=== PATIENT | male | born 1950 | race Caucasian/White ===

== ENCOUNTER → 2017-03-13 15:45 | Outpatient (CLI) | payer MEDICARE | END | disposition home or self-care (01) | LOC: D.MRI 15:45 | DX: M54.16 Radiculopathy, lumbar region (principal) ==

== ENCOUNTER 2018-08-28 06:00 | Outpatient (CLI) | payer MEDICARE ==
[2018-08-27 12:45] LABS: BASOPHILS 0.7 % (0-2); EOSINOPHILS 6.3 % (0-7); HEMATOCRIT 41.9 % (42.0-54.0); HEMOGLOBIN 14.8 g/dL (13.5-17.5); IMMATURE GRANULOCYTES 0.2 % (0-5); LYMPHOCYTES 21.7 % (15-50); MCH 32.1 pg (26.0-34.0); MCHC 35.3 g/dL (31.0-37.0); MCV 90.9 fL (80.0-100.0); MEAN PLATELET VOLUME 8.7 fL (7.4-10.4); MONOCYTES 9.5 % (2-11); NEUTROPHILS 61.6 % (40-80); PLATELET COUNT 263 10x3/uL (130-400); RBC 4.61 10x6/uL (4.20-6.10); RDW 12.5 % (11.5-14.5); WBC 5.8 10x3/uL (4.8-10.8)
[2018-08-27 13:01] LABS: INR 1.1 (0.85-1.17); PROTIME 13.7 SECONDS (11.6-15.0)
[2018-08-27 13:02] LABS: APTT 50.4 SECONDS (22.8-39.4)
[~2018-08-28] VITALS: Ht 182.9 cm; Wt 102.5 kg
[~2018-08-28 06:00] MED LIST: CIALIS2.5 MG PO; LOPRESSOR25 MG PO; PROPAFENONE HC300 MG PO
[2018-08-28 07:19] VITALS: BP 138/86; Ht 182.9 cm; Wt 102.5 kg
--- NOTE | 2018-08-28 14:43 | NUR ---
0900-updated his surgery is delayed due to dr hathaway assisting with another procedure 1000-updated still working 1130-states tired of waiting and wants to go home. 1145-iv d/c. patient dressed. dc home ambulatory.
== END 2018-08-28 06:01 | disposition home or self-care (01) ==
LOC: D.OPS 06:00 → D.PAN 08:00 → EDSTATUS 08:00 → D.OPS 09:00
PROVIDERS: Anesthesiology; ATTEND Surgery
DX: K40.90 Unilateral inguinal hernia, without obstruction or gangrene, not specified as recurrent (principal); Z53.29 Procedure and treatment not carried out because of patient's decision for other reasons; Z01.812 Encounter for preprocedural laboratory examination

== ENCOUNTER 2019-01-03 02:00 | Outpatient (CLI) | payer MEDICARE ==
[2019-01-03] VITALS (7 sets, daily range): BP systolic 107–132; BP diastolic 56–90; Ht 182.9 cm; Wt 102.2 kg
[~2019-01-03] VITALS: Ht 182.9 cm; Wt 102.2 kg
[2019-01-03] MEDS ORDERED: PROPAFENONE HC300 MG PO (02:05)
[2019-01-03] MEDS ORDERED: OXYBUTYNIN CHLOR5 M1 PO (02:06)
[2019-01-03] MEDS ORDERED: ELIQUIS5 MG PO (02:07)
[2019-01-03] MEDS ORDERED: K-TAB10 MEQ PO (02:07)
[2019-01-03 02:24] LABS: BASOPHILS 0.4 % (0-2); EOSINOPHILS 5.8 % (0-7); HEMATOCRIT 43.7 % (42.0-54.0); HEMOGLOBIN 15.8 g/dL (13.5-17.5); IMMATURE GRANULOCYTES 0.2 % (0-5); LYMPHOCYTES 30.4 % (15-50); MCH 32.8 pg (26.0-34.0); MCHC 36.2 g/dL (31.0-37.0); MCV 90.9 fL (80.0-100.0); MONOCYTES 7.4 % (2-11); NEUTROPHILS 55.8 % (40-80); PLATELET COUNT 289 10x3/uL (130-400); RBC 4.81 10x6/uL (4.20-6.10); RDW 12.7 % (11.5-14.5); WBC 10.6 10x3/uL (4.8-10.8)
[2019-01-03 02:28] LABS: INR 1.33 (0.85-1.17)
[2019-01-03 02:29] LABS: APTT 55.9 SECONDS (22.8-39.4)
[2019-01-03 02:33] LABS: ALBUMIN 3.2 g/dL (3.4-5.0); ALKALINE PHOSPHATASE 65 U/L (46-116); ALT (SGPT) 43 U/L (10-68); BILIRUBIN - TOTAL 0.37 mg/dL (0.2-1.3); CALC OSMOLALITY 282 mosm/kg (275-300); CALCIUM 9.8 mg/dL (8.5-10.1); CARBON DIOXIDE 21.1 mmol/L (21.0-32.0); CHLORIDE - SERUM 104 mmol/L (98-107); CREATININE - SERUM 1.3 mg/dL (0.6-1.3); GLUCOSE 178 mg/dL (74-106); POTASSIUM - SERUM 4.3 mmol/L (3.5-5.1); SODIUM 138 mmol/L (136-145); UREA NITROGEN 20 mg/dL (7-18); eGFR NON AFRICAN AMERICAN 58 mL/min (90-120)
[2019-01-03 02:44] LABS: CKMB 0.4 U/L (0.0-3.6); CREATINE KINASE 45 UL (21-232); MAGNESIUM - SERUM 1.9 mg/dL (1.8-2.4); TROPONIN-I < 0.017 ng/mL (0.000-0.060)
--- NOTE | 2019-01-03 11:34 | NUR ---
IV AND TELEMETRY DCD. DC PLANS GIVEN. UNDERSTANDING VOICED.
--- NOTE | 2019-01-07 11:09 | DS ---
PATIENT:TOBY SAUCEDA :48 MEDICAL RECORD: [id number] DISCHARGE SUMMARY ADMISSION DATE: 01/03/19 DISCHARGE DATE: 01/03/19 DIAGNOSIS: Supraventricular tachycardia. BRIEF HISTORY: This is a gentleman with a past history of SVT ablation in the past for SVT by Dr. Davenport. He presents to the Emergency Room with recurrent SVT, requiring cardioversion. He had no further dysrhythmia. He is on propafenone as well as Lopressor. Lopressor was increased from 25 to 50 mg b.i.d., the propafenone will continue. He will follow up with his assistant engineer for further EP study and possible ablation. TRANSINT:[id number] Voice Confirmation ID: [id number] DOCUMENT ID: [id number] BRIGETTE ONEAL MD at 1109 CC: [id number] DICTATION DATE: 01/03/19 1000 SITECORE DEVELOPER: 01/03/19 1027 DEP CLI 01/03/19 [facility] [address] [place] [address]
== END 2019-01-03 11:35 | disposition home or self-care (01) ==
LOC: OBSVTIME → D.ER 02:00 → D.CATH 02:00 → D.M2 03:52 → D.ER 03:52 → OBSVTIME 03:52 → D.M2 03:52 → D.ER 04:50 → EDSTATUS 11:18 → D.CATH 11:35 → D.M2 11:35
PROVIDERS: Family Medicine; ATTEND Internal Medicine Interventional Cardiology
DX: I47.1 Supraventricular tachycardia (principal); I48.0 Paroxysmal atrial fibrillation; K21.9 Gastro-esophageal reflux disease without esophagitis; G89.29 Other chronic pain

== ENCOUNTER 2019-01-08 04:48 | Outpatient (CLI) | payer MEDICARE ==
[~2019-01-08] VITALS: Ht 182.9 cm; Wt 103.6 kg
[~2019-01-08 04:48] MED LIST changes: +ELIQUIS5 MG PO; +K-TAB10 MEQ PO; +OXYBUTYNIN CHLOR5 M1 PO
[2019-01-08 05:22] LABS: BASOPHILS 0.3 % (0-2); EOSINOPHILS 1.3 % (0-7); HEMATOCRIT 44.4 % (42.0-54.0); HEMOGLOBIN 15.8 g/dL (13.5-17.5); IMMATURE GRANULOCYTES 0.3 % (0-5); INR 1.25 (0.85-1.17); LYMPHOCYTES 13.1 % (15-50); MCH 32.1 pg (26.0-34.0); MCHC 35.6 g/dL (31.0-37.0); MCV 90.2 fL (80.0-100.0); MEAN PLATELET VOLUME 9.2 fL (7.4-10.4); MONOCYTES 7.1 % (2-11); NEUTROPHILS 77.9 % (40-80); PLATELET COUNT 278 10x3/uL (130-400); PROTIME 15.1 SECONDS (11.6-15.0); RBC 4.92 10x6/uL (4.20-6.10); RDW 12.6 % (11.5-14.5); WBC 9.1 10x3/uL (4.8-10.8)
[2019-01-08 05:23] LABS: APTT 57.1 SECONDS (22.8-39.4)
[2019-01-08 05:26] LABS: ALBUMIN 3.6 g/dL (3.4-5.0); ALKALINE PHOSPHATASE 67 U/L (46-116); ALT (SGPT) 72 U/L (10-68); BILIRUBIN - TOTAL 0.47 mg/dL (0.2-1.3); CALC OSMOLALITY 284 mosm/kg (275-300); CALCIUM 9.1 mg/dL (8.5-10.1); CARBON DIOXIDE 21.7 mmol/L (21.0-32.0); CHLORIDE - SERUM 104 mmol/L (98-107); CREATININE - SERUM 1.4 mg/dL (0.6-1.3); GLUCOSE 185 mg/dL (74-106); POTASSIUM - SERUM 4.2 mmol/L (3.5-5.1); PROTEIN - SERUM 7.6 g/dL (6.4-8.2); SODIUM 138 mmol/L (136-145); UREA NITROGEN 25 mg/dL (7-18); eGFR NON AFRICAN AMERICAN 53 mL/min (90-120)
[2019-01-08 05:38] LABS: CREATINE KINASE 60 UL (21-232); TROPONIN-I < 0.017 ng/mL (0.000-0.060)
--- NOTE | 2019-01-08 05:39 | NUR ---
CONSENT GIVEN FOR SEDATION. TRANSFERRED TO ROOM T3 TO CARDIOVERSION
--- NOTE | 2019-01-08 05:40 | NUR ---
CARDIOVERTED TO NS 70 WITH 100 JOULES SYNCHRONIZED SHOCK
--- NOTE | 2019-01-08 05:59 | NUR ---
AXOX X 4 WEANED OFF OF O2
[2019-01-08 06:20] VITALS: BP 115/75
[2019-01-08 06:30] VITALS: BP 117/78
[2019-01-08 06:41] VITALS: BP 118/70
[2019-01-08 06:54] LABS: BASOPHILS 0.3 % (0-2); EOSINOPHILS 0.9 % (0-7); HEMATOCRIT 37.5 % (42.0-54.0); HEMOGLOBIN 13.3 g/dL (13.5-17.5); IMMATURE GRANULOCYTES 0.3 % (0-5); LYMPHOCYTES 9.4 % (15-50); MCH 31.9 pg (26.0-34.0); MCHC 35.5 g/dL (31.0-37.0); MCV 89.9 fL (80.0-100.0); MEAN PLATELET VOLUME 8.8 fL (7.4-10.4); MONOCYTES 7.6 % (2-11); NEUTROPHILS 81.5 % (40-80); RBC 4.17 10x6/uL (4.20-6.10); RDW 12.6 % (11.5-14.5); WBC 7.9 10x3/uL (4.8-10.8)
[2019-01-08 07:15] LABS: PLATELET COUNT 215 10x3/uL (130-400)
[2019-01-08 07:17] LABS: ANION GAP 12.6 mmol/L (8-16); BILIRUBIN - TOTAL 0.41 mg/dL (0.2-1.3); CALCIUM 8.1 mg/dL (8.5-10.1); CARBON DIOXIDE 23.5 mmol/L (21.0-32.0); CREATININE - SERUM 1.1 mg/dL (0.6-1.3); POTASSIUM - SERUM 4.1 mmol/L (3.5-5.1); PROTEIN - SERUM 6.3 g/dL (6.4-8.2); TROPONIN-I 0.039 ng/mL (0.000-0.060)
--- NOTE | 2019-01-08 07:50 | NUR ---
PT LYING IN BED. ALERT AND ORIENTED. TELEMETRY PLACED ON PT. AT BEDSIDE. PT HAS NO COMPLAINTS AT THIS TIME. WILL CONTINUE TO MONITOR.
[2019-01-08 08:47] VITALS: BP 124/83
[2019-01-08 08:53] VITALS: BP 124/83
--- NOTE | 2019-01-08 10:07 | NUR ---
DR. ONEAL STATES PT DOES NOT NEED TO TAKE ASPIRIN. PT ALSO STATED HE DOES NOT WANT IT.
[2019-01-08 10:17] VITALS: BP 124/63; Ht 182.9 cm; Wt 103.6 kg
--- NOTE | 2019-01-08 11:33 | NUR ---
PT DISCHARGE PAPERS EXPLAINED AND PT VERBALIZED UNDERSTANDING. CHART COPY SIGNED. PT LEFT VIA WC WITH VOLUNTER AND ACCOMPANIED BY .
--- NOTE | 2019-01-08 11:35 | NUR ---
PT DISCHARGE PAPERS EXPLAINED AND PT VERBALIZED UNDERSTANDING. CHART COPY SIGNED. PT LEFT VIA WC WITH VOLUNTER AND ACCOMPANIED BY VIA PERSONAL CAR.
--- NOTE | 2019-01-10 10:47 | HP ---
PATIENT: TOBY DE LA CRUZ MEDICAL RECORD: [id number] ACCOUNT: [id number] LOCATION:[address] : 48 ADMISSION DATE: 01/08/19 PCP: CAROLINE ENRIQUEZ MD HISTORY AND PHYSICAL EXAMINATION DIAGNOSES: 1. Supraventricular tachycardia. 2. Shortness breath, dyspnea on exertion. 3. Hypertension. HISTORY OF PRESENT ILLNESS: Mr. De La Cruz has a history of supraventricular tachycardia, seen by Dr. Davenport in the past, underwent ablation for this. He has had recurrent episodes of this. He was set to see a gentleman in [place] regarding this. However, the appointment has not got covered yet. He had another recurrent episode of supraventricular tachycardia requiring DC cardioversion. He has been asymptomatic since the DC cardioversion early this morning. PHYSICAL EXAMINATION: CONSTITUTIONAL/GENERAL APPEARANCE: Well nourished, well developed, appears stated age. EYES: Lids and conjunctivae noninjected. No discharge. No pallor. ENT: Lips within normal limit. No cyanosis. No pallor. NECK: Carotid arteries, bilateral normal upstroke. No bruits. No thrills. No jugular venous pressure or distention. CERVICAL LYMPH NODES: Nontender. Nonenlarged. THYROID: Not enlarged. No nodules. CARDIOVASCULAR: Precordial exam, nondisplaced. No heaves or pericardial thrills. Rate and rhythm, regular. Heart sounds, normal S1, normal S2. No S3, no gallop, no rub. Systolic murmur, not heard. Diastolic murmur, not heard. RESPIRATORY: Respiratory effort, unlabored. Normal curvature. No thoracic deformity. No chest wall tenderness. Percussion, resonant. Auscultation, clear. No wheezes, no rales, no rhonchi. ABDOMEN: Soft, nondistended, nontender. No abdominal pain, no vomiting and normal appetite. MUSCULOSKELETAL: No joint tenderness, normal gait, normal tone. SKIN: Warm and dry. OVERALL IMPRESSION: Supraventricular tachycardia requiring DC cardioversion. At this time, clearly he needs another ablation. He will make an appointment with Dr. Davenport as soon as possible to reevaluate for a second ablation. TRANSINT:[id number] Voice Confirmation ID: [id number] DOCUMENT ID: [id number] BRIGETTE ONEAL MD at 1043 CC: [id number] DICTATION DATE: 01/08/19 1208 NORMALIZER: 01/08/19 1221 DIS IN 01/08/19 [facility] [address] [place] [id number]
--- NOTE | 2019-01-10 10:47 | DS ---
PATIENT:TOBY SAUCEDA :48 MEDICAL RECORD: [id number] DISCHARGE SUMMARY ADMISSION DATE: 01/08/19 DISCHARGE DATE: 01/08/19 DISCHARGE DIAGNOSES: 1. Supraventricular tachycardia. 2. Dyspnea on exertion and shortness of breath. 3. Hypertension. HOSPITAL COURSE: Mr. Sauceda had the onset of palpitation, shortness of breath, dyspnea on exertion and was found to have supraventricular tachycardia at approximately 200, underwent DC cardioversion. No further arrhythmias. He has been on multiple medications for this and had an ablation in the past. He is on propafenone, metoprolol, we will continue these. He will see Dr. Davenport as soon as possible for repeat ablation. TRANSINT:[id number] Voice Confirmation ID: [id number] DOCUMENT ID: [id number] BRIGETTE ONEAL MD at 1047 CC: [id number] DICTATION DATE: 01/08/19 1208 SAMPLE TESTER GRINDER: 01/09/19 0021 DIS IN 01/08/19 [id number] [place] [address]
== END 2019-01-08 11:38 | disposition home or self-care (01) ==
LOC: OBSVTIME → D.ER 04:48 → D.CATH 04:48 → D.M2 06:08 → D.ER 06:08 → D.M2 06:08 → OBSVTIME 06:08 → D.ER 07:00 → D.M2 11:38 → D.CATH 11:38 → EDSTATUS 13:30
PROVIDERS: Family Medicine; ATTEND Internal Medicine Interventional Cardiology
DX: I47.1 Supraventricular tachycardia (principal); R06.00 Dyspnea, unspecified; I10 Essential (primary) hypertension; K21.9 Gastro-esophageal reflux disease without esophagitis

== ENCOUNTER 2020-07-11 02:16 | Emergency (ER) | payer MEDICARE ==
[~2020-07-11] VITALS: Ht 182.9 cm; Wt 99.1 kg
[2020-07-11 02:23] VITALS: BP 160/98; Ht 182.9 cm; Wt 99.1 kg
[2020-07-11] MEDS ORDERED: MULTAQ400 MG PO (02:24)
[2020-07-11] MEDS ORDERED: VISTARIL25 MG PO (04:00)
== END 2020-07-11 04:39 | disposition home or self-care (01) ==
LOC: D.ER 02:16
DX: F41.8 Other specified anxiety disorders (principal)